=== PATIENT | female | born 1995 | race Two or more races ===

== ENCOUNTER → 2024-01-14 | Emergency (ER) | payer OTHER ==
[~2024-01-14] VITALS: Ht 170.2 cm; Wt 80.7 kg
[~2024-01-14] MED LIST: 0.9 % SODIUM CHLORIDE 1,000 ML IV ONE; FAMOTIDINE/PF 20 MG/2 ML VIAL IV ONE; ONDANSETRON HCL 2 MG/ML VIAL IV ONE
[2024-01-14 16:23] LABS: HEMATOCRIT 40.7 % (36.0-45.00); HEMOGLOBIN 14.1 g/dL (12.0-15.00); MEAN CELL VOLUME 89.5 fL (80.00-100.00); MEAN CORPUSCULAR HGB CONC 34.7 g/dl (32.0-36.0); PLATELET COUNT 209 K/uL (150-450); RED BLOOD COUNT 4.55 M/uL (4.00-6.00)
[2024-01-14 16:49] LABS: ALBUMIN 4.3 gm/dL (3.4-5.0); BILIRUBIN TOTAL 0.96 mg/dL (0.3-1.2); CREATININE SERUM 0.68 mg/dL (0.55-1.02); GFR 103.79; GLOBULINA 3.3 G/DL (2.4-3.5); POTASSIUM 3.86 mEq/L (3.5-5.1); TOTAL PROTEIN 7.6 gm/dL (6.4-8.2)
== END | disposition left against medical advice (07) ==
LOC: ER 13:35
PROVIDERS: Nurse Practitioner Family
DX: R11.10 Vomiting, unspecified (principal)